=== PATIENT | female | born 1975 | race African-American/Black ===

== ENCOUNTER 2017-01-09 14:43 | Emergency (ER) | payer OTHER, MEDICAID ==
[~2017-01-09] VITALS: Ht 157.5 cm; Wt 73.0 kg
[2017-01-09] MEDS ORDERED: KETOROLAC 60MG/2ML VIAL IM ONE (18:15)
[2017-01-09 19:00] VITALS: BP 102/68
== END 2017-01-09 21:00 | disposition home or self-care (01) ==
LOC: ER 15:02
DX: S39.82XA Other specified injuries of lower back, initial encounter (principal); F12.10 Cannabis abuse, uncomplicated; Z98.51 Tubal ligation status; W06.XXXA Fall from bed, initial encounter; Y93.89 Activity, other specified; Y92.013 Bedroom of single-family (private) house as the place of occurrence of the external cause
CPT/HCPCS: 72110; 72220; 81025; 96372; 99284; J1885